=== PATIENT | female | born 1985 | race Caucasian/White ===

== ENCOUNTER 2025-01-24 11:18 | Observation (INO) | payer MEDICAID, SELFPAY ==
[2025-01-24] VITALS (9 sets, daily range): BP systolic 120–137; BP diastolic 80–90; PULSE 90–117; RESP 18–98; TEMP 36.6; BMI 31.9
[2025-01-24 13:13] LABS: Basophils % (Auto) 0 % (0-2.5); Eosinophils # (Auto) 0.1 Thou/mm3 (0.0-0.5); Eosinophils % (Auto) 1 % (0-10); Hematocrit 40.1 % (36.0-46.0); Hemoglobin 13.5 g/dL (12.0-16.0); Immature Granulocytes % (Auto) 1 % (0-0); Immature Granulocytes Auto 0.16 Thou/mm3 (0.00-0.00); Lymphocytes # (Auto) 1.8 Thou/mm3 (1.0-4.8); Lymphocytes % (Auto) 15 % (10-50); Mean Corpuscular HGB Conc 33.7 g/dl (31.0-37.0); Mean Corpuscular Volume 83 fL (80-100); Monocytes # (Auto) 0.5 Thou/mm3 (0.0-0.8); Monocytes % (Auto) 4 % (0-12); Neutrophils # (Auto) 9.4 Thou/mm3 (1.8-7.7); Neutrophils % (Auto) 79 % (37-80); Nucleated Red Blood Cell % 0 /100 WBC (0); Platelet Count 183 Thou/mm3 (140-440); RDW Standard Deviation 42.7 fL (36.4-46.3); Red Blood Count 4.83 Miln/mm3 (4.00-5.20); White Blood Count 11.9 Thou/mm3 (3.6-11.0)
[2025-01-24 13:24] LABS: Alanine Aminotransferase 17 U/L (10-49); Albumin, Serum 3.6 gm/dL (3.5-5.0); Albumin/Globulin Ratio 1.8 (1.2-2.2); Alkaline Phosphatase 118 U/L (46-116); Anion Gap 10 (7-16); BUN/Creatinine Ratio 12 Ratio (12-20); Bilirubin,Total 0.2 mg/dL (0.3-1.2); Blood Urea Nitrogen 6 mg/dL (9-23); Calcium 9.2 mg/dL (8.3-10.6); Calcium (Corrected) 9.5 mg/dL (8.5-10.1); Carbon Dioxide 23.6 mMol/L (20.0-31.0); Chloride 107 mMol/L (98-107); Creatinine (Component) 0.5 mg/dL (0.6-1.3); Estimated Creatinine Clearance 178.2 mL/min (>60); Glucose 66 mg/dL (74-106); Osmolality,Calculated 276 (275-295); Potassium 4.4 mMol/L (3.4-5.1); Sodium 141 mMol/L (136-145); Total Protein 5.6 gm/dL (5.7-8.2); Uric Acid 5.5 mg/dL (3.1-7.8); eGFR > 60 See Note
[2025-01-24 13:41] LABS: Fibrinogen 578 mg/dL (175-375); INR 0.9 (0.9-1.3); Partial Thromboplastin Time 25.6 Seconds (22.0-36.0); Prothrombin Time 10.1 Seconds (9.0-12.2)
[2025-01-24 14:03] LABS: Bacteria,Urine 1+; Bilirubin,Urine Negative (Negative); Blood,Urine Negative (Negative); Clarity,Urine Clear (Clear/Hazy); Collection Type, Urine Clean Catch; Color,Urine Colorless (Lt Yel-Yel); Glucose, Urine Negative (Negative); Ketones,Urine Negative (Negative); Leukocyte Esterase,Urine Negative (Negative); Nitrite,Urine Negative (Negative); Protein,Urine Negative (Neg - Trace); RBC,Urine < 1 /hpf (0-3); Specific Gravity,Urine 1.005 (1.001-1.035); Squamous Epithelial Cell,Urine 8 /hpf (0-5); Urobilinogen,Urine Negative mg/dL (0.0-1.0); WBC,Urine 2 /hpf (0-5)
[2025-01-24] MEDS: BETAMET ACET/BETAMET NA PH (Celestone) 6 MG/ML VIAL 12 MG IM (14:37)
== END 2025-01-24 14:50 | disposition home or self-care (01) ==
PROVIDERS: Admitting Provider Specialist; PCP Obstetrics & Gynecology; Visit Provider Specialist
DX: O26.893 Other specified pregnancy related conditions, third trimester (principal); R03.0 Elevated blood-pressure reading, without diagnosis of hypertension; Z3A.36 36 weeks gestation of pregnancy
CPT/HCPCS: 36415; 59025; 59899; 80053; 81001; 84550; 85025; 85384; 85610; 85730; 96372; J0702

== ENCOUNTER 2025-01-25 14:51 | Observation (INO) | payer MEDICAID, SELFPAY ==
[2025-01-25 14:45] VITALS: BP 139/82; PULSE 120
[2025-01-25] MEDS: BETAMET ACET/BETAMET NA PH (Celestone) 6 MG/ML VIAL 12 MG IM (15:32)
[2025-01-25 15:46] VITALS: BP 132/92; PULSE 113
[2025-01-25 15:59] LABS: Protein Total, Urine Volume 3220 mL/24hr (600-1800)
[2025-01-25 16:05] LABS: Protein Total, 24 hr Urine 322 mg/24hr (<149); Protein Total, Urine 10 mg/dL (1-14)
[2025-01-25 16:14] VITALS: BP 128/87; PULSE 111
--- NOTE | 2025-01-25 16:46 | PC.NURSE ---
1530 Pt ambulates to OB triage without difficulty. Returns for 2nd Betamethasone injection, delivering 24 hour urine collection. EFM applied x2. VS WNL Pt reports + FM, denies any leaking of fluid, vaginal bleeding or UC's. Pt reports a stressfull few days, fought with FOB yesterday. Today her niece was killed in an auto accident. 1620 RNST, 2nd injection of Betameth given. 1625 DC instructions reviewed and signed. Pt verbalized understanding. DC home, stable
== END 2025-01-25 16:25 | disposition home or self-care (01) ==
LOC: S4S1 15:30 → S4SX 16:28
PROVIDERS: Admitting Provider Obstetrics & Gynecology; Referring Provider Obstetrics & Gynecology; Visit Provider Obstetrics & Gynecology
DX: Z34.83 Encounter for supervision of other normal pregnancy, third trimester (principal); Z36.89 Encounter for other specified antenatal screening; Z3A.36 36 weeks gestation of pregnancy
CPT/HCPCS: 59899; 84156; 96372; G0378; J0702

== ENCOUNTER 2025-02-14 13:43 | Inpatient (IN) | payer MEDICAID, SELFPAY ==
[2025-02-14] VITALS (19 sets, daily range): BP systolic 115–179; BP diastolic 60–92; PULSE 82–114; RESP 16; TEMP 36.6–36.7; BMI 32.2
[2025-02-14] MEDS: RINGERS LACTATED 1000 ML 1,000 ML 100 ML IV ×2 (14:20→18:19)
--- NOTE | 2025-02-14 15:11 | PD.LDHP ---
Documentation for date of: 02/14/25 OB Labor/Induct. HPI History of Present Illness : 4 Para: 2 Term pregnancies: 2 pregnancies: 1 Living children: 2 History of Abortions: Spontaneous and Elective: 1 History of sections: No History of : No Date of last menstrual period: 05/14/25 YOAV: 02/18/25 Gestational Age (weeks): 39 Gestational Age (days): 3 Gestational age based on last menstrual period: -12 Indication for induction: medical complication (Preeclampsia) History of present illness: This is a 39-year-old 4 para 1112 IUP 39 weeks 3 days who presents to [facility] for induction of labor for preeclampsia. The patient had a 24-hour urine collection on January 25 showing 322 mg of protein over 24 hours . The patient denies any headache change in vision or right upper quadrant pain. She reports normal movement. She denies any leaking or bleeding. She reports occasional contractions. Her care is with Dr. Oscar at [facility]. She had a maternal- medicine ultrasound on October 20 showing 21 weeks and 6 days with no anatomic abnormalities. Her NIPT showed low risk aneuploidy female. AFP abnormal: But no anatomic abnormality confirmed. x 2 at 39 wks and 36 wks. History of Present Dating criteria: LMP confirmed by 2nd trimester US Obstetrical complications: preeclampsia Narrative: Past medical history: Advanced maternal age , short interpregnancy interval Review of Systems Review of Systems Narrative Review of Systems: As above Past Medical History Family History OTHER FAMILY HX: Diabetes mellitus, hypertension, breast cancer, bone cancer, colon cancer, skin cancer. Surgical History SURGICAL: Negative Section OTHER SURGICAL HX: Dilatation and curettage for miscarriage in the first trimester Social History SOCIAL: Denies any alcohol drug use or smoking Meds Home Medications and Allergies Home Medications ?Medication ?Instructions ?Recorded ?Confirmed ?Type vits no.124-ferrous fum 1 tab PO QDAY 12/07/23 02/14/25 History 27 mg iron-folic acid 800 mcg tablet ( Vitamin) aspirin 81 mg tablet,delayed mg 01/24/25 History release Held on 02/14/25. Instructions: Duplicate Allergies Allergy/AdvReac Type Severity Reaction Status Date / Time No Known Allergies Allergy Verified 02/14/25 14:43 OB Exam Physical Exam Vital signs: Pulse BP 111 H 136/92 H 02/14/25 14:46 02/14/25 14:46 Routine HEENT Exam Comments: Oropharynx and sclera are clear Routine Respiratory Exam Comments: Clear to auscultation bilaterally Routine Cardiovascular Exam Comments: Regular rate and rhythm Routine Abdominal Exam Comments: Gravid Detailed Labor and Delivery Exam Dilation (cm): 3 Effacement (%): 50 station: -2 Presentation: Vertex Membranes: intact Comments: Per RN exam Routine Extremities Exam Comments: Nontender Routine Skin Exam Comments: No gross rashes or lesions Routine Neurological Exam Comments: No focal deficit OB Results Labs 02/15/25 01:57 02/15/25 01:57 Labs: EFW 2719g, cephalic. Impressions Impression: IUP 39 weeks 3 days Preeclampsia without severe features Unlikely early HELLP Syndrome (AST 113 and ALT 50 but normal LDH, and plt count) however we will repeat PIH labs q 12 h and monitor for trends. Abnormal AFP with NL MFM US Induction of Labor Anticipate Repeat PIH labs q 12h Informed consent obtained. The patient was made aware of the risks, complications, alternatives and benefits of the proposed induction of labor and she agrees.
[2025-02-14 15:16] LABS: Collection Type, Urine Clean Catch
[2025-02-14 15:19] LABS: Basophils # (Auto) 0.0 Thou/mm3 (0.0-0.2); Basophils % (Auto) 0 % (0-2.5); Eosinophils # (Auto) 0.1 Thou/mm3 (0.0-0.5); Eosinophils % (Auto) 1 % (0-10); Hematocrit 37.5 % (36.0-46.0); Hemoglobin 13.0 g/dL (12.0-16.0); Immature Granulocytes Auto 0.10 Thou/mm3 (0.00-0.00); Lymphocytes # (Auto) 1.5 Thou/mm3 (1.0-4.8); Lymphocytes % (Auto) 17 % (10-50); Mean Corpuscular HGB Conc 34.7 g/dl (31.0-37.0); Mean Corpuscular Hemoglobin 27.2 pg (25.0-35.0); Mean Corpuscular Volume 79 fL (80-100); Monocytes # (Auto) 0.3 Thou/mm3 (0.0-0.8); Monocytes % (Auto) 3 % (0-12); Neutrophils # (Auto) 6.5 Thou/mm3 (1.8-7.7); Neutrophils % (Auto) 77 % (37-80); Nucleated Red Blood Cell # 0.00 Thou/mm3 (0.00-0.00); Nucleated Red Blood Cell % 0 /100 WBC (0); Platelet Count 144 Thou/mm3 (140-440); RDW Standard Deviation 40.1 fL (36.4-46.3); Red Blood Count 4.78 Miln/mm3 (4.00-5.20); White Blood Count 8.4 Thou/mm3 (3.6-11.0)
[2025-02-14 15:39] LABS: Alanine Aminotransferase 50 U/L (10-49); Albumin, Serum 3.5 gm/dL (3.5-5.0); Albumin/Globulin Ratio 1.7 (1.2-2.2); Alkaline Phosphatase 137 U/L (46-116); Anion Gap 8 (7-16); Aspartate Amino Transferase 113 U/L (0-34); BUN/Creatinine Ratio 13 Ratio (12-20); Bilirubin,Total 0.3 mg/dL (0.3-1.2); Blood Urea Nitrogen 8 mg/dL (9-23); Calcium 8.6 mg/dL (8.3-10.6); Calcium (Corrected) 9.0 mg/dL (8.5-10.1); Carbon Dioxide 21.5 mMol/L (20.0-31.0); Chloride 106 mMol/L (98-107); Creatinine (Component) 0.6 mg/dL (0.6-1.3); Estimated Creatinine Clearance 149.2 mL/min (>60); Globulin 2.1 gm/dL (2.3-3.5); Glucose 138 mg/dL (74-106); Osmolality,Calculated 270 (275-295); Potassium 3.9 mMol/L (3.4-5.1); Sodium 135 mMol/L (136-145); Total Protein 5.6 gm/dL (5.7-8.2); eGFR > 60 See Note
[2025-02-14 15:50] LABS: Bacteria,Urine 1+; Bilirubin,Urine Negative (Negative); Blood,Urine Negative (Negative); Clarity,Urine Clear (Clear/Hazy); Color,Urine Lt-Yellow (Lt Yel-Yel); Glucose, Urine Negative (Negative); Ketones,Urine Negative (Negative); Leukocyte Esterase,Urine Negative (Negative); Nitrite,Urine Negative (Negative); PH,Urine 6.0 (5.0-7.0); Protein,Urine Negative (Neg - Trace); RBC,Urine 1 /hpf (0-3); Specific Gravity,Urine 1.006 (1.001-1.035); Squamous Epithelial Cell,Urine 10 /hpf (0-5); Transitional Epi Cells,Urine 1 /hpf (0-5); Urobilinogen,Urine Negative mg/dL (0.0-1.0); WBC,Urine < 1 /hpf (0-5)
[2025-02-14 15:57] LABS: Syphilis Nonreactive (Nonreactive)
--- NOTE | 2025-02-14 16:21 | XR_ITS ---
Examination: age limited TECHNIQUE: Limited transabdominal sonographic images pelvis Date and time: February 14, 2025 1631 hours INDICATIONS: Preop labor induction, unknown size and dates FINDINGS: Viable intrauterine gestation cephalic presentation Estimated weight 2719 g Estimated gestational age 36 weeks 5 days IMPRESSION: Viable intrauterine gestation cephalic presentation
[2025-02-14] MEDS: OXYTOCIN in NS 30 units 30 UNIT/500 ML BAG IV (17:47)
[2025-02-14 18:14] LABS: Fibrinogen 538 mg/dL (175-375); INR 0.9 (0.9-1.3); Partial Thromboplastin Time 27.3 Seconds (22.0-36.0); Prothrombin Time 10.4 Seconds (9.0-12.2)
[2025-02-14] MEDS: fentaNYL CIT INJ 50 mCg/ML AMP 2ML 100 MCG IVP (23:03)
[2025-02-15] VITALS (214 sets, daily range): BP systolic 101–180; BP diastolic 56–92; PULSE 82–145; RESP 18; TEMP 36.6–37.1; O2SAT 75–100
[2025-02-15 02:15] LABS: Basophils # (Auto) 0.0 Thou/mm3 (0.0-0.2); Basophils % (Auto) 1 % (0-2.5); Eosinophils # (Auto) 0.1 Thou/mm3 (0.0-0.5); Eosinophils % (Auto) 1 % (0-10); Hematocrit 37.6 % (36.0-46.0); Hemoglobin 13.0 g/dL (12.0-16.0); Immature Granulocytes Auto 0.10 Thou/mm3 (0.00-0.00); Lymphocytes # (Auto) 1.6 Thou/mm3 (1.0-4.8); Lymphocytes % (Auto) 18 % (10-50); Mean Corpuscular HGB Conc 34.6 g/dl (31.0-37.0); Mean Corpuscular Hemoglobin 27.4 pg (25.0-35.0); Mean Corpuscular Volume 79 fL (80-100); Monocytes # (Auto) 0.4 Thou/mm3 (0.0-0.8); Monocytes % (Auto) 5 % (0-12); Neutrophils # (Auto) 6.4 Thou/mm3 (1.8-7.7); Neutrophils % (Auto) 75 % (37-80); Nucleated Red Blood Cell # 0.00 Thou/mm3 (0.00-0.00); Nucleated Red Blood Cell % 0 /100 WBC (0); Platelet Count 146 Thou/mm3 (140-440); RDW Standard Deviation 41.3 fL (36.4-46.3); Red Blood Count 4.75 Miln/mm3 (4.00-5.20); White Blood Count 8.6 Thou/mm3 (3.6-11.0)
[2025-02-15 02:41] LABS: Alanine Aminotransferase 49 U/L (10-49); Albumin, Serum 3.3 gm/dL (3.5-5.0); Albumin/Globulin Ratio 1.7 (1.2-2.2); Alkaline Phosphatase 126 U/L (46-116); Anion Gap 7 (7-16); Aspartate Amino Transferase 101 U/L (0-34); BUN/Creatinine Ratio 14 Ratio (12-20); Bilirubin,Total 0.4 mg/dL (0.3-1.2); Blood Urea Nitrogen 7 mg/dL (9-23); Calcium 8.1 mg/dL (8.3-10.6); Calcium (Corrected) 8.7 mg/dL (8.5-10.1); Carbon Dioxide 21.2 mMol/L (20.0-31.0); Chloride 110 mMol/L (98-107); Creatinine (Component) 0.5 mg/dL (0.6-1.3); Estimated Creatinine Clearance 179.0 mL/min (>60); Globulin 2.0 gm/dL (2.3-3.5); Glucose 82 mg/dL (74-106); LDH (Lactate Dehydrogenase) 235 U/L (120-246); Osmolality,Calculated 272 (275-295); Potassium 3.7 mMol/L (3.4-5.1); Sodium 138 mMol/L (136-145); Total Protein 5.3 gm/dL (5.7-8.2); eGFR > 60 See Note
[2025-02-15 02:54] LABS: Fibrinogen 462 mg/dL (175-375); INR 0.9 (0.9-1.3); Partial Thromboplastin Time 26.7 Seconds (22.0-36.0); Prothrombin Time 10.3 Seconds (9.0-12.2)
[2025-02-15] MEDS: fentaNYL CIT INJ 50 mCg/ML AMP 2ML 100 MCG IVP ×2 (06:30→17:40)
[2025-02-15 15:48] LABS: Chlamydia trachomatis PCR Negative (Not Detect); Neisseria Gonorrhoeae DNA PCR Negative (Not Detect); Trichomonas Negative (Negative)
[2025-02-15] MEDS: OXYTOCIN in NS 20 units 20 UNIT/1,000 ML BAG 125 UNIT IV (17:00)
[2025-02-15] MEDS: IBUPROFEN TAB 400 MG TABLET 800 MG PO (17:29)
[2025-02-15] MEDS: TRANEXAMIC ACID 1,000 MG IVPB 1,000 MG/100 ML BAG 200 MG IV (17:37)
--- NOTE | 2025-02-15 20:50 | PD.LDDELS ---
Data ([place]) Data Hx Section: No Maternal Blood Type: A Pos Rubella Titre: Unknown RPR: Unknown Labs: Negative: Chlamydia, Gonorrhea and Group Beta Strep and Unknown: RPR, Hepatitis B and HIV : 4 Term: 2 : 1 Livin Abortions: Spontaneous & Theraputic: 1 Delivery Data ([place]) Labor Data Initiation of labor: Induction Induction/Augmentation Agent: Pitocin ROM date: 02/15/25 ROM time: 12:25 Amniotic membrane rupture type: Spontaneous Amniotic fluid description: Clear Delivery Data EDC: 02/18/25 EDC calculated by:: LMP Date of arrival to unit: 02/14/25 Onset of labor date: 02/15/25 Onset of labor time: 01:20 Complete dilation date: 02/15/25 Complete dilation time: 14:18 [facility] delivery date: 02/15/25 delivery time: 16:56 Gestational age (weeks): 39 Gestational age (days): 4 Placenta delivery date: 02/15/25 Placenta delivery time: 17:00 Stage 1 total time: Labor - Stage 1 Duration 12 hours and 58 minutes Delivered by: Dr. Groves Delivery nurse: Dilma Gregg RN [place] nurse: Jannie AMOR Manager Shipping at delivery: Yes Support person(s) at delivery: FOB Delivery Method Delivery method: Normal Vaginal Delivery Presentation: Vertex position: OA Anesthesia Type Anesthesia Type: Epidural Delivery Room Medications Delivery room medications: Cytotec 800 NM and other (TXA) Placenta Placenta delivery description: Spontaneous Cord blood sent to lab: Yes cord blood collection: Cord Blood Type Episiotomy Episiotomy description: None Lacerations #1: Perineal: 1st degree Perineal repair Sutures used for repair: 4.0 Chromic EBL Estimated blood loss (ml): 300 Umbilical Cord cord description: 3 Vessels Additional Procedures The put patient progressed to complete and pushed approximately 30 minutes without any effect. Her epidural was actually turned off and the patient's bed was put back together. She then labored down about 2 hours and pushed about another half hour delivering a liveborn female. Findings liveborn female in the REINALDO presentation with no nuchal cord or meconium Apgars were 8 and 9 weight was 7 pounds 1 ounce. The placenta was complete spontaneous grossly normal. The patient sustained a very small first-degree perineal laceration repaired using 4-0 chromic. The patient had some brisk bleeding after delivery and she was given 800 mcg of Cytotec rectally and TXA. Patient had been on 18 milliunits of Pitocin prior to delivery. At the end of all these measures, her bleeding was noted to scant. Complications were none. Condition both mom and were in stable condition the delivery room. Complications Complications: None [facility] Data ([facility]) [facility] Data order: 1 's gender: Female Identification band number: [id number] weight (gms): 3200 g Weight (pounds): 7 lbs and 0.9 ozs [place] length: 51 cm 1 minute: 8 5 minutes: 9
[2025-02-15 22:11] LABS: Amphetamine/Metham Scrn,Ur OB Positive (Negative); Benzoylecgonine Screen, Ur OB Negative (Negative); Opiate Screen,Urine OB Negative (Negative); THC Screen,Urine OB Negative (Negative)
[2025-02-15 22:12] LABS: Amphetamines/Metham U Confirm* See Sep Rpt
[2025-02-16 03:38] VITALS: BP 136/77; PULSE 107; RESP 18; TEMP 36.9; O2SAT 97
--- NOTE | 2025-02-16 06:21 | ESPR_ITS ---
RE: DONALDO GALVAN : 1985 DATE OF SERVICE: 02/16/2025 day #1. The patient denies any problem or complaint. She is voiding, ambulating, tolerating a regular diet, passing flatus. She denies any excessive vaginal bleeding. She denies any dizziness or lightheadedness. She denies any chest pain, palpitations, shortness of breath or lower extremity pain. She denies any headache, change in vision or right upper quadrant pain. OBJECTIVE: Vital Signs: Blood pressure 136/77, heart rate 107, respirations 18, temperature is 98.5, oxygen saturation is 97% on room air. Lungs: Clear to auscultation bilaterally. Heart: Tachycardic, but regular rhythm. Abdomen: Nondistended. Fundus is firm, nontender. Extremities: Nontender. Hemoglobin pending post delivery. ASSESSMENT: day #1, status post spontaneous vaginal delivery. Preeclampsia without severe features. Urine Drug Screen Positive for Methamphetamine. PLAN: Repeat [facility] labs. If labs are stable and blood pressures are stable, possible discharge home tomorrow. Follow up in the office in 1 week. If able to monitor blood pressures at home, the patient may be able to follow up at 6 weeks. DT: 06:11:24 TT: 06:20:00 Ref: [id number] - TID: [id number] MTDD
[2025-02-16 07:08] VITALS: BP 134/83; PULSE 88; RESP 16; TEMP 36.5; O2SAT 98
[2025-02-16 07:24] LABS: Basophils # (Auto) 0.0 Thou/mm3 (0.0-0.2); Basophils % (Auto) 0 % (0-2.5); Eosinophils # (Auto) 0.0 Thou/mm3 (0.0-0.5); Eosinophils % (Auto) 0 % (0-10); Hematocrit 32.5 % (36.0-46.0); Hemoglobin 11.2 g/dL (12.0-16.0); Immature Granulocytes Auto 0.08 Thou/mm3 (0.00-0.00); Lymphocytes # (Auto) 1.2 Thou/mm3 (1.0-4.8); Lymphocytes % (Auto) 9 % (10-50); Mean Corpuscular HGB Conc 34.5 g/dl (31.0-37.0); Mean Corpuscular Hemoglobin 27.9 pg (25.0-35.0); Mean Corpuscular Volume 81 fL (80-100); Monocytes # (Auto) 0.4 Thou/mm3 (0.0-0.8); Monocytes % (Auto) 3 % (0-12); Neutrophils # (Auto) 11.5 Thou/mm3 (1.8-7.7); Neutrophils % (Auto) 87 % (37-80); Nucleated Red Blood Cell # 0.00 Thou/mm3 (0.00-0.00); Nucleated Red Blood Cell % 0 /100 WBC (0); Platelet Count 123 Thou/mm3 (140-440); RDW Standard Deviation 40.7 fL (36.4-46.3); Red Blood Count 4.02 Miln/mm3 (4.00-5.20); White Blood Count 13.2 Thou/mm3 (3.6-11.0)
[2025-02-16] MEDS: IBUPROFEN TAB 400 MG TABLET 800 MG PO ×2 (07:24→17:37)
--- NOTE | 2025-02-16 09:48 | PC.NURSE ---
02/16/2025 0948: JALEESA AUGUSTIN AND FREEDOM ON THE UNIT REPORTED TO RN PATIENT WAS SEEN AND A CPS REPORT WILL BE MADE.
--- NOTE | 2025-02-16 11:11 | PC.NURSE ---
Adrian WHITTW contacted RN and reported CWS verbal report was made. per CWS worker, if no one comes by 1300, patient may DC home once medically cleared.
--- NOTE | 2025-02-16 11:12 | PC.SS ---
CWS report submitted due to patient testing positive for methamphetamine. CWS verbal report submitted to Miya Boateng. CWS written report submitted electronically. If CWS does not respond prior to 1:00 pm on today's date patient can discharge once medically cleared. RESPIRATORY CARE TECHNICIAN updated bedside nurse.
[2025-02-16 11:45] VITALS: BP 134/82; PULSE 90; RESP 16; TEMP 36.8; O2SAT 99
--- NOTE | 2025-02-16 12:15 | PC.SS ---
CWS report submitted electronically for review to CWS screening unit.
[2025-02-16 15:40] LABS: Chlamydia trachomatis PCR Negative (Not Detect); Neisseria Gonorrhoeae DNA PCR Negative (Not Detect); Trichomonas Negative (Negative)
[2025-02-16 16:20] VITALS: BP 140/89; PULSE 91; RESP 16; TEMP 36.7; O2SAT 99
--- NOTE | 2025-02-16 16:33 | PC.SS ---
INTERNET SALES MANAGER conducted bedside contact with the patient to address nursing referral indicating patient?s toxicology report positive for methamphetamine.? INTERNET SALES MANAGER introduced self and role.? INTERNET SALES MANAGER provided basis of referral.? Patient denied use of methamphetamine.? Patient informed INTERNET SALES MANAGER that she was unware how she could test positive for methamphetamine.? INTERNET SALES MANAGER informed patient that due to positive results CWS report would be submitted.? Patient encouraged to be sincere if CWS upon follow up.? INTERNET SALES MANAGER informed patient that CWS follow up will either be immediate response or 10 day follow up.? Patient resides at home with FOB, Manoj Hernandez.? is the patient?s 3rd child.? Other children are ages 10 years old and 14 months.? Patient is not aligned with WIC, SNAP or TANF.? Patient denies history of CWS intervention or domestic violence.? Patient denies history of alcohol/drug abuse.? Patient denies history of mental health.? delivered naturally.? Patient interacting appropriate with infant.? [place] [facility] Patient reports compliance with OB appointments.? Patient plans on bottle feeding the infant.? Patient has access to appropriate supplies and equipment.? FOB will provide transportation upon discharge.? Patient describes possessing support system consisting of FOB and extended family.? INTERNET SALES MANAGER provided community resources to include [facility] and [facility].? No further intervention required at this time, social director will be available to address any further concerns.? INTERNET SALES MANAGER updated bedside nurse.?
--- NOTE | 2025-02-16 18:39 | PC.NURSE ---
6016 RN spoke with CWS cutting and boning supervisorlog pond worker Yola Yoon to report irritable episode from patient about not being discharged home at 24 hours. cutting and boning supervisorlog pond worker was able to tell RN that the report made earlier was evaluated out which means there would be no CWS follow up There was a referral to maternal health services made and they would follow up with patient. Yola told RN that she would talk with her superivor and to report results of 's UDS when available. Dr. Romero was made aware of update at this time.
[2025-02-16 20:33] VITALS: BP 138/81; PULSE 79; RESP 15; TEMP 37.1; O2SAT 97
[2025-02-17 04:00] VITALS: BP 133/88; PULSE 88; RESP 15; TEMP 36.4; O2SAT 98
[2025-02-17] MEDS: IBUPROFEN TAB 400 MG TABLET 800 MG PO (04:02)
[2025-02-17 07:35] LABS: Alanine Aminotransferase 55 U/L (10-49); Albumin, Serum 3.0 gm/dL (3.5-5.0); Albumin/Globulin Ratio 1.6 (1.2-2.2); Alkaline Phosphatase 91 U/L (46-116); Anion Gap 6 (7-16); Aspartate Amino Transferase 66 U/L (0-34); BUN/Creatinine Ratio 12 Ratio (12-20); Basophils # (Auto) 0.1 Thou/mm3 (0.0-0.2); Basophils % (Auto) 0 % (0-2.5); Bilirubin,Total 0.2 mg/dL (0.3-1.2); Blood Urea Nitrogen 7 mg/dL (9-23); Calcium 8.7 mg/dL (8.3-10.6); Calcium (Corrected) 9.5 mg/dL (8.5-10.1); Carbon Dioxide 24.6 mMol/L (20.0-31.0); Chloride 111 mMol/L (98-107); Creatinine (Component) 0.6 mg/dL (0.6-1.3); Eosinophils # (Auto) 0.1 Thou/mm3 (0.0-0.5); Eosinophils % (Auto) 1 % (0-10); Estimated Creatinine Clearance 149.2 mL/min (>60); Globulin 1.9 gm/dL (2.3-3.5); Glucose 87 mg/dL (74-106); Hematocrit 31.4 % (36.0-46.0); Hemoglobin 10.6 g/dL (12.0-16.0); Immature Granulocytes Auto 0.18 Thou/mm3 (0.00-0.00); Lymphocytes # (Auto) 1.7 Thou/mm3 (1.0-4.8); Lymphocytes % (Auto) 14 % (10-50); Mean Corpuscular HGB Conc 33.8 g/dl (31.0-37.0); Mean Corpuscular Hemoglobin 27.2 pg (25.0-35.0); Mean Corpuscular Volume 81 fL (80-100); Monocytes # (Auto) 0.5 Thou/mm3 (0.0-0.8); Monocytes % (Auto) 4 % (0-12); Neutrophils # (Auto) 9.9 Thou/mm3 (1.8-7.7); Neutrophils % (Auto) 79 % (37-80); Nucleated Red Blood Cell # 0.00 Thou/mm3 (0.00-0.00); Nucleated Red Blood Cell % 0 /100 WBC (0); Osmolality,Calculated 280 (275-295); Platelet Count 130 Thou/mm3 (140-440); Potassium 3.6 mMol/L (3.4-5.1); RDW Standard Deviation 42.4 fL (36.4-46.3); Red Blood Count 3.89 Miln/mm3 (4.00-5.20); Sodium 142 mMol/L (136-145); Total Protein 4.9 gm/dL (5.7-8.2); White Blood Count 12.5 Thou/mm3 (3.6-11.0); eGFR > 60 See Note
[2025-02-17 08:00] VITALS: BP 132/81; PULSE 93; RESP 16; TEMP 36.7; O2SAT 97
--- NOTE | 2025-02-17 09:05 | PC.CC ---
ED Collections Rep received information from attending nurse Nila- Pt baby tox returned and Pt baby tox report showed positive for methamphetamine. Subway Train Operator contacted CWS and spoke with Luna - Subway Train Operator updated CWS with current tox report from Pt baby, behaviors, and concerns medical staff reported regarding mothers unpredictable behaviors, baby having difficulty waking and feeding, and current discharge plan. Subway Train Operator updated CWS with current contact information. CWS Luna will follow up with mortgage loan underwriter in regard to respond.
[2025-02-17 10:26] LABS: Fibrinogen 578 mg/dL (175-375); INR 0.9 (0.9-1.3); Partial Thromboplastin Time 29.1 Seconds (22.0-36.0); Prothrombin Time 9.9 Seconds (9.0-12.2)
--- NOTE | 2025-02-17 10:51 | PC.CC ---
Data Center Technician was notified, WENDY Love [phone] is at location responding to Pt and Pt baby girl CWS report. Attending doctor, WENDY ALEXANDRA, and automobile and property underwriter reviewed results and current process with Pt and Manoj Goode [phone] in regard to CWS and Pt baby being admitted to NICU for observation and screening score. Pt continued to denied drug use. WENDY Boothe will conduct investigation and will provide report.
[2025-02-17 11:45] VITALS: BP 155/93; PULSE 99; RESP 20; TEMP 36.6; O2SAT 99
--- NOTE | 2025-02-17 13:28 | PC.CC ---
Activated Sludge Operator received telephone call from LEEROY Lira [phone] who reported was able to safety plan with maternal Grandmother and baby will be allowed to be discharge home.
[2025-02-17 15:54] VITALS: BP 141/75; PULSE 98; RESP 18; TEMP 36.7; O2SAT 98
--- NOTE | 2025-02-17 17:49 | ESPR_ITS ---
Subjective Subjective Interval history: The patient is a 39-year-old -0-0-3 day #2 status post vaginal delivery. She denies heavy bleeding fevers or chills. She had a small laceration repaired at delivery. As patient's behavior at delivery was unusual, a drug screen was called for which was positive for meth. Baby also tested positive for meth. Social work has seen the patient. Her denies any use and has gotten tested. The baby will go home in the care of the grandmother until this can be straightened out. Exam Vital Signs Temp Pulse Resp BP Pulse Ox O2 Del Method 98.1 F 98 18 141/75 H 98 Room Air 02/17/25 15:54 02/17/25 15:54 02/17/25 15:54 02/17/25 15:54 02/17/25 15:54 02/17/25 15:54 Narrative Exam Fundus firm nontender extremities show no edema. Patient is tearful on rounding today and upset about the fact the baby has to be sent home in the care of her mother. Objective Labs 02/17/25 06:39 02/17/25 06:39 Labs: Laboratory Results - last 24 hr 02/17/25 06:39 WBC 12.5 H RBC 3.89 L Hgb 10.6 L Hct 31.4 L MCV 81 MCH 27.2 MCHC 33.8 RDW Std Deviation 42.4 Plt Count 130 L Neut % (Auto) 79 Lymph % (Auto) 14 [place] % (Auto) 4 Eos % (Auto) 1 Baso % (Auto) 0 Neut # (Auto) 9.9 H Lymph # (Auto) 1.7 [place] # (Auto) 0.5 Eos # (Auto) 0.1 Baso # (Auto) 0.1 Immature Gran # (Auto) 0.18 H Absolute Nucleated RBC 0.00 Immature Gran % 1 H Nucleated RBC % 0 PT 9.9 INR 0.9 APTT 29.1 Fibrinogen 578 H Sodium 142 Potassium 3.6 Chloride 111 H Carbon Dioxide 24.6 Anion Gap 6 L BUN 7 L Creatinine 0.6 Estim Creat Clear Calc 149.2 eGFR > 60 BUN/Creatinine Ratio 12 Glucose 87 Calculated Osmolality 280 Calcium 8.7 Corrected Calcium 9.5 Total Bilirubin 0.2 L AST 66 H ALT 55 H Alkaline Phosphatase 91 D Total Protein 4.9 L Albumin 3.0 L Globulin 1.9 L Albumin/Globulin Ratio 1.6 Assessment & Plan Problem List (1) Preeclampsia: Status: Acute Assessment and plan: Blood pressures have been stable (2) Term delivered: Status: Acute Assessment and plan: Patient's vital signs and labs are stable. Predelivery hemoglobin 13 postdelivery hemoglobin 11.2. Bleeding is minimal. She will be discharged home to follow-up with Dr. Oscar in the office in 2 and 6 weeks (3) AMA (advanced maternal age) multigravida 35+: Status: Acute Time Spent With Patient Time: Total time spent is greater than 50% in coordination of care (as documented) at patient's floor/unit and/or counseling patient: Time with patient: less than 15 minutes
--- NOTE | 2025-02-17 17:55 | ESDS_ITS ---
DS: Providers Provider Date of admission: 02/14/25 13:43 Primary care physician: Yolette Roche MD Admitting Provider: Los Paul MD Attending Provider on Admission: Los Paul MD Consults: 02/15/25 23:23 Referral Routine Comment: Attending Provider on DC: Diana Groves MD ([facility]) Discharging Provider: Diana Groves MD ([facility]) Anticipated date of discharge: 02/17/25 DS: Diagnosis Discharge Diagnosis (1) Preeclampsia: Status: Acute (2) Term delivered: Status: Acute (3) AMA (advanced maternal age) multigravida 35+: Status: Acute Problem List Completed Was Problem List Reviewed/Reconciled?: Yes Summary/Hosp Course Brief History: This is a 39-year-old 4 para 1112 IUP 39 weeks 3 days who presents to [facility] for induction of labor for preeclampsia. The patient had a 24-hour urine collection on January 25 showing 322 mg of protein over 24 hours . The patient denies any headache change in vision or right upper quadrant pain. She reports normal movement. She denies any leaking or bleeding. She reports occasional contractions. Her [facility] is with [facility]. [facility] at [facility]. She had a maternal- medicine ultrasound on October 20 showing 21 weeks and 6 days with no anatomic abnormalities. Her NIPT showed low risk aneuploidy female. AFP abnormal: But no anatomic abnormality confirmed. x 2 at 39 wks and 36 wks. The patient underwent an uncomplicated vaginal delivery 02/15/[address] Groves. Please see delivery note for further details. Patient was doing well day #1. The patient was discharged home day #2 in stable condition. Predelivery hemoglobin was 13 postdelivery hemoglobin is 11.2 her vital signs were stable and her blood pressures were normal. Patient's drug screen was positive for meth as was babies. Social work consult was performed. The baby will go home in the care of of the maternal grandmother. The patient will follow-up with Dr. Oscar next week for a blood pressure check. I did encourage drug cessation. Patient also states that she is a smoker and she can discuss smoking sensation with Dr. Oscar's office. Patient is amendable to trying. Peripartum Data Delivery Method: Normal Vaginal Delivery Episiotomy Description: None Laceration Description: see Delivery Summary complications: none Status at Discharge Cognitive/behavioral status at discharge: Patient is alert and oriented x 3 in no apparent distress Functional status at discharge: independent ambulation Overall status at discharge: patient is progressing back to baseline Time Spent with Patient Time attestation: Total time spent providing and/or coordinating discharge services: Time spent: Less than 30 minutes Specific discharge activities: Pelvic rest x 6 weeks Exam Vital Signs Temp Pulse Resp BP Pulse Ox O2 Del Method 98.1 F 98 18 141/75 H 98 Room Air 02/17/25 15:54 02/17/25 15:54 02/17/25 15:54 02/17/25 15:54 02/17/25 15:54 02/17/25 15:54 Narrative Exam Fundus firm at umbilicus no significant edema or erythema Discharge Plan Plan Patient Disposition: HOME (Self Care) Disposition Comment: Stable Patient condition on transfer: Stable Prescriptions/Referrals Prescriptions/Med Rec: New ibuprofen 600 mg tablet 600 mg PO Q6H PRN (Reason: pain) Qty: 30 0RF Continued Vitamin 27 mg iron- 800 mcg Tablet 1 tab PO QDAY Discontinued aspirin 81 mg tablet,delayed release (DR/EC) Patient Comments: TAKE 2 TABLETS BY MOUTH EVERY DAY Referrals: Yolette Roche MD [Primary Care Provider] - Patient/Caregiver Discharge Instructions Discharge Activity: activity as tolerated Other Discharge Activity Instructions:: Follow up office 1 week for BP check. Other Discharge Diet Instructions: General Diet as tolerated. Education Materials: After a Vaginal , After Delivery [place] Concerns, : Caring for Yourself, Smoking Quit Preg Withdrawal Print Language: Vietnamese Activity Restrictions/Additional Instructions: Pelvic rest x 6 weeks. No intercourse, tampons, douching, bathtubs, swimming x 6 weeks. Stand Alone Forms: Lucía Award Info., Patient Portal Info Letter Discharge Order Discharge Orders: Discharge (Routine); Ordered 02/17/25 Ordered By: Diana Groves ([facility]) Planned Discharge Date 02/17/25 (1) Preeclampsia Qualifiers: Trimester: third trimester Qualified Code(s): O14.93 - Unspecified pre-eclampsia, third trimester (3) AMA (advanced maternal age) multigravida 35+ Qualifiers: Trimester: third trimester Qualified Code(s): O09.523 - Supervision of elderly multigravida, third trimester
== END 2025-02-17 18:44 | disposition home or self-care (01) | DRG 560 ==
LOC: S4SX 02-15 17:12 → S4NX 02-15 19:56
PROVIDERS: Obstetrics & Gynecology; Admitting Provider Specialist; PCP Family Medicine; Visit Provider Specialist
DX: O14.94 Unspecified pre-eclampsia, complicating childbirth (principal); Z37.0 Single live birth; Z3A.39 39 weeks gestation of pregnancy; O99.334 Smoking (tobacco) complicating childbirth; F17.200 Nicotine dependence, unspecified, uncomplicated; O70.0 First degree perineal laceration during delivery
CPT/HCPCS: 36415; 59409; 76815; 80053; 80307; 81001; 83615; 85025; 85384; 85610; 85730; 86780; 86850; 86900; 86901; 87491; 87591; 87661; 94762; J2590; J2795; J3010; J3490; J7120; S0191; A9270